=== PATIENT | male | born 1935 | race Caucasian/White ===

== ENCOUNTER 2020-08-21 17:22 | Observation (INO) ==
[2020-08-21] MEDS ORDERED: Perflutren Lipid Microsphere 1.3 ML in 0.9 % Sodium Chloride 8.7 ML IVP PRN (20:20)
[2020-08-21] MEDS ORDERED: Naloxone 0.4 MG/ML INJ IVP PRN (20:21)
[2020-08-21] MEDS ORDERED: Ondansetron 4 MG/2 ML VIAL IVP PRN (20:37)
[2020-08-21] MEDS ORDERED: Melatonin 3 MG TABLET PO PRN (20:37)
[2020-08-21] MEDS ORDERED: Ibuprofen 400 MG TABLET PO PRN (20:37)
[2020-08-21] MEDS ORDERED: *HR* HYDROcodone/Acet 5/325 mg TABLET PO PRN (20:37)
[2020-08-21] MEDS: predniSONE 20 MG TABLET PO SCH (20:46)
[2020-08-21] MEDS ORDERED: Albuterol 2.5 MG/3 ML NEBULIZER IH PRN (21:24)
[2020-08-21] MEDS ORDERED: Nitroglycerin 0.4 MG TAB.SUBL SL PRN (21:25)
[2020-08-21] MEDS: Albuterol 2.5 MG/3 ML NEBULIZER IH SCH (23:48)
[2020-08-22 03:23] LABS: Basophils % 0.4 %; Eosinophils % 0.1 %; Hematocrit 45.1 % (37.5-50.1); Hemoglobin 14.7 g/dL (12.9-16.9); Immature Granulocytes % 0.6 % (0-4); Lymphocytes # 0.6 K/mcL (0.6-4.6); Lymphocytes % 5.2 %; Mean Corpuscular HGB Conc 32.6 g/dL (31.6-35.5); Mean Corpuscular Hemoglobin 29.8 pg (28.0-33.3); Mean Corpuscular Volume 91.3 fL (83.0-100.0); Mean Platelet Volume 10.6 fL (9.4-12.4); Monocytes # 0.3 K/mcL (0.0-1.3); Monocytes % 2.9 %; Neutrophils # 9.6 K/mcL (1.6-8.9); Platelet Count 171 K/mcL (140-400); Red Blood Count 4.94 M/mcL (4.19-5.50); Red Cell Distribution Width 13.6 % (11.5-14.5); Segmented Neutrophils % 90.8 %; White Blood Count 10.6 K/mcL (4.3-11.1)
[2020-08-22] MEDS: Albuterol 2.5 MG/3 ML NEBULIZER IH SCH ×6 (03:54→23:37)
[2020-08-22 04:05] LABS: Albumin 3.5 g/dL (3.5-5.7); Albumin/Globulin Ratio 1.3 (1.1-2.2); Bilirubin,Total 0.7 mg/dL (0.3-1.0); Calcium 8.7 mg/dL (8.6-10.3); Chol/HDL Ratio 2.6 (0-4.9); Globulin 2.7 g/dL (2.4-3.5); Potassium 4.2 mEq/L (3.5-5.1); Total Protein 6.2 g/dL (6.4-8.9)
[2020-08-22] MEDS ORDERED: Regadenoson 0.4 MG/5 ML SYRINGE IVP ONE (06:33)
[2020-08-22] MEDS: Cholecalciferol (D-3) 1,000 UNIT (25MCG) TABLET PO SCH ×2 (09:17→20:17)
[2020-08-22] MEDS: predniSONE 20 MG TABLET PO SCH (09:18)
[2020-08-22] MEDS: Gabapentin 100 MG CAPSULE PO SCH ×3 (09:18→20:17)
[2020-08-22] MEDS: Aspirin Enteric Coated 81 MG Tablet PO SCH (09:18)
[2020-08-22] MEDS: Benzonatate 100 MG CAPSULE PO SCH ×2 (09:18→20:15)
[2020-08-22] MEDS: amLODIPine 5 MG TABLET PO SCH (09:18)
[2020-08-22] MEDS: Furosemide 40 MG TABLET PO SCH ×2 (09:19→17:53)
[2020-08-22] MEDS: *HR* Heparin 5,000 UNIT/ML VIAL SQ SCH (17:52)
[2020-08-23 01:59] LABS: Calcium 8.7 mg/dL (8.6-10.3); Magnesium 2.1 mg/dL (1.6-2.6); Phosphorous 2.9 mg/dL (2.7-4.5); Potassium 3.7 mEq/L (3.5-5.1)
[2020-08-23] MEDS: Albuterol 2.5 MG/3 ML NEBULIZER IH SCH ×4 (04:02→14:57)
[2020-08-23] MEDS: *HR* Heparin 5,000 UNIT/ML VIAL SQ SCH (05:59)
[2020-08-23] MEDS ORDERED: Metoprolol XL (24 HR) Succ 25 MG TAB.ER.24H PO SCH (09:00)
[2020-08-23] MEDS: amLODIPine 5 MG TABLET PO SCH (09:27)
[2020-08-23] MEDS: Aspirin Enteric Coated 81 MG Tablet PO SCH (09:27)
[2020-08-23] MEDS: predniSONE 20 MG TABLET PO SCH (09:27)
[2020-08-23] MEDS: Benzonatate 100 MG CAPSULE PO SCH (09:28)
[2020-08-23] MEDS: Cholecalciferol (D-3) 1,000 UNIT (25MCG) TABLET PO SCH (09:29)
[2020-08-23] MEDS: Gabapentin 100 MG CAPSULE PO SCH (09:29)
[2020-08-23 09:53] VITALS: BP 122/65
[2020-08-23 12:10] LABS: Estimated Average Glucose 108 mg/dl; Hemoglobin A1C 5.4 %
== END 2020-08-23 16:29 | disposition home or self-care (01) ==
LOC: 3ANU
PROVIDERS: ADMIT Internal Medicine; ATTEND Internal Medicine